=== PATIENT | female | born 1955 | race Caucasian/White ===

== ENCOUNTER 2019-03-25 17:00 | Emergency (ER) | payer BC, OTHER ==
[~2019-03-25] VITALS: Wt 78.0 kg
[~2019-03-25 17:00] MED LIST: ALPR1TAB2 PO; CARAS PO; DESV50TA4 PO; DICY20TA59 PO; DOCU-144 PO; OMEP20CA16 PO
--- NOTE | 2019-03-25 18:59 | ERD ---
ER Documentation Chief Complaint Chief Complaint GENITAL DISCHARGE/ WHITISH HPI 63-year-old female, previously healthy, presents the emergency department, complaining of white vaginal discharge that started 2 weeks ago. The patient denies dysuria, no pelvic pain, no fever or chills. ROS All systems reviewed and are negative except as per history of present illness. Medications Home Meds Active Scripts Nystatin-Triamcinolone* (Nystatin-Triamcinolone* Cream) 15 Gm Cream.gm., 1 APPLIC TOP BID for 7 Days, TUB Prov:KATHERINE DALEY MD 03/25/19 Fluconazole* (Diflucan*) 150 Mg Tablet, 150 MG PO ONCE, #1 TAB Prov:KATHERINE DALEY MD 03/25/19 Alprazolam* (Xanax*) 1 Mg Tab, 1 MG PO TID for 30 Days, TAB Prov:FELTON BRADSHAW NP 09/11/16 Sucralfate* (Carafate*) 1 Gm/10 Ml Susp, 1 GM PO QID for 30 Days, EA Prov:FELTON BRADSHAW NP 09/11/16 Omeprazole* (Omeprazole*) 20 Mg Capsule.dr, 20 MG PO DAILY, #30 CAP Prov:FELTON BRADSHAW NP 09/11/16 Docusate Sodium* (Colace*) 100 Mg Capsule, 100 MG PO BID, #60 CAP Prov:FELTON BRADSHAW V. [employer] 09/11/16 Desvenlafaxine Succinate (Pristiq) 50 Mg Tab.sr.24h, 75 MG PO HS for 30 Days, TAB.SA Prov:FELTON BRADSHAW NP 09/11/16 Dicyclomine Hcl* (Bentyl*) 20 Mg Tablet, 20 MG PO BID, #30 TAB Prov:FELTON BRADSHAW [employer] 09/11/16 Reported Medications Alprazolam* (Xanax*) 1 Mg Tab, 1 MG PO Q8H PRN for ANXIETY, TAB 09/11/16 Allergies Allergies: Coded Allergies: NSAIDS (Non-Steroidal Anti-Inflamma (Verified Allergy, Mild, 09/11/16) ABD PAIN codeine (Unverified Adverse Reaction, Unknown, NAUSEA, VOMITING, 09/14/14) PMhx/Soc History of Surgery: Yes (appendectomy ) Anesthesia Reaction: No Hx Neurological Disorder: No Hx Respiratory Disorders: No Hx Cardiac Disorders: No Hx Psychiatric Problems: Yes (ANXIETY ) Hx Miscellaneous Medical Probl: No Hx Alcohol Use: No Hx Substance Use: No Hx Tobacco Use: No FmHx Family History: No diabetes, No coronary disease Physical Exam Vitals Vital Signs Date Temp Pulse Resp B/P (MAP) Pulse Ox O2 O2 Flow FiO2 Time Delivery Rate 03/25/19 97.5 74 18 157/74 99 17:09 (101) Physical Exam Const: No acute distress Head: Atraumatic Eyes: Normal Conjunctiva ENT: Normal External Ears, Nose and Mouth. Neck: Full range of motion. No meningismus. Resp: Clear to auscultation bilaterally Cardio: Regular rate and rhythm, no murmurs Abd: Soft, non tender, non distended. Normal bowel sounds : External genitalia with significant erythema and dryness, vaginal canal with white, non-malodorous discharge, cervix intact. Skin: No petechiae or rashes Back: No midline or flank tenderness Ext: No cyanosis, or edema Neur: Awake and alert Psych: Normal Mood and Affect Results 24 hrs Laboratory Tests Test 03/25/19 19:08 Urine Color STRAW Urine Clarity CLEAR Urine pH 7.0 Urine Specific [place] 1.005 Urine Ketones NEGATIVE mg/dL Urine Nitrite NEGATIVE mg/dL Urine Bilirubin NEGATIVE mg/dL Urine Urobilinogen NEGATIVE mg/dL Urine Leukocyte Esterase NEGATIVE Maggie/ul Urine Hemoglobin NEGATIVE mg/dL Urine Glucose NEGATIVE mg/dL Urine Total Protein NEGATIVE mg/dl Procedures/MDM Vital signs stable. Differential diagnosis considered include UTI, cystitis, yeast infection, vaginitis, bacterial vaginosis, pelvic inflammatory disease, STI's . Less likely malignancy or acute abdomen. During the ED course the patient remained stable, no new complaints. Results and clinical impression discussed with the patient who agrees with management. The patient is stable to be treated outpatient and will be discharged home; some side effects of prescribed medications (headache, rash, nausea, vomiting, diarrhea, drowsiness, habituation, bleeding, hypertension, interactions with other medications) were reviewed. Follow up with the primary care provider in the next 48h has been recommended. If symptoms persist, worsen or new symptoms develop, then patient should return to the ED immediately. Instructions explained and given directly by me to the patient with acknowledgment and demonstrated understanding. Disclaimer: Inadvertent spelling and grammatical errors are likely due to EHR/dictation software use and do not reflect on the overall quality of patient care. Also, please note that the electronic time recorded on this note does not necessarily reflect the actual time of the patient encounter. Departure Diagnosis: Primary Impression: Vaginitis Condition: Stable Additional Instructions: Thank you very much for allowing us to participate in your care. Your health and safety is our top priority at [facility]. The evaluation in the emergency department has been done to rule out an acute emergency. Chronic conditions like malignancy or other diseases have not been evaluated; therefore, you need to follow up with a primary care provider in the next 48h. If symptoms persist, worsen or new symptoms develop, then patient should return to the ED immediately. Call your primary care doctor TOMORROW for an appointment during the next 2-4 days and bring all the information provided. Have prescriptions filled and follow precisely the directions on the label. If the symptoms get worse and your provider is unavailable, return to the Emergency Department immediately. KATHERINE DALEY MD Mar 25, 2019 18:59
[2019-03-25] MEDS ORDERED: FLUC150T PO (20:06)
[2019-03-25] MEDS ORDERED: NYST15CR36 TOP (20:06)
[2019-03-25 20:15] VITALS: BP 142/65; PULSE 70; RESP 18
== END 2019-03-25 20:08 | disposition home or self-care (01) ==
LOC: FTE 17:00
DX: N76.0 Acute vaginitis (principal)
CPT/HCPCS: 81003; 87210; 99283